=== PATIENT | male | born 1960 | race Caucasian/White ===

== ENCOUNTER 2016-11-27 09:54 | Emergency (ER) | payer SELFPAY ==
[~2016-11-27] VITALS: Ht 182.9 cm; Wt 102.0 kg
[~2016-11-27 09:54] MED LIST: ALBUTEROL INHALER
[2016-11-27 09:56] VITALS: BP 144/95; PULSE 70; RESP 20; TEMP 97.4; O2SAT 98
--- NOTE | 2016-11-27 10:06 | PD ---
Physical Exam Time Seen by Provider: 10:01 Narrative 56yo M c/o feeling lightheaded and chest "burning" last night and continued into this morning. BP 165/90 at time and associates it to feeling nervous. Does not take BP meds. Was evaluated one week ago in [place] for similar symptoms and [place], PE r/o. Reports SOB that is normal for him and is worse. Says he "just doesn't feel normal." Patient seen in triage. VS reviewed. Awaiting bed placement. Data Data Last Documented VS Vital Signs Date Time Temp Pulse Resp B/P Pulse Ox O2 Delivery O2 Flow Rate FiO2 11/27/16 09:56 97.4 70 20 144/95 98 Room Air [facility] Supervised Visit with TERESA: Joy Damon Nov 27, 2016 10:06
[2016-11-27] MEDS ORDERED: ASPI81CH37 CHEW (10:14)
[2016-11-27] MEDS ORDERED: VENTAER INH (10:14)
[2016-11-27] MEDS ORDERED: SODIUM CHLORIDE 0.9% FLUSH 10 ML FLUSH IVF PRN (10:15)
[2016-11-27 10:19] VITALS: BP 131/81; PULSE 64; RESP 23; O2SAT 96
[2016-11-27 10:36] LABS: AUTOMATED NEUTROPHIL # 4.7 TH/MM3 (1.8-7.7); BASOPHIL # 0.1 TH/MM3 (0-0.2); BASOPHIL % 1.9 % (0.0-2.0); EOSINOPHIL # 0.1 TH/MM3 (0-0.4); EOSINOPHIL % 1.7 % (0.0-4.0); HEMATOCRIT 46.4 % (39.0-51.0); HEMO FLAGS DIFF FINAL; LYMPH % 22.2 % (9.0-44.0); LYMPHOCYTE # 1.5 TH/MM3 (1.0-4.8); MEAN CELL VOLUME 91.6 FL (80.0-100.0); MEAN CORPUSCULAR HGB CONC 33.9 % (32.0-36.0); MONO % 6.7 % (0.0-8.0); NEUT % 67.5 % (16.0-70.0); PLATELET COUNT 189 TH/MM3 (150-450); RED BLOOD COUNT 5.07 MIL/MM3 (4.50-5.90); RED CELL DISTRIBUTION WIDTH 13.1 % (11.6-17.2); WHITE BLOOD COUNT 6.9 TH/MM3 (4.0-11.0)
[2016-11-27 10:45] LABS: APTT (PATIENT) 26.4 SEC (24.3-30.1); INTERNATIONAL NORMALIZED RATIO 0.9 RATIO; PROTHROMBIN TIME - PATIENT 10.2 SEC (9.8-11.6)
[2016-11-27 10:54] LABS: ANION GAP 6 MEQ/L (5-15); AST (GOT) 20 U/L (15-37); BICARBONATE 24.6 MEQ/L (21.0-32.0); BLOOD UREA NITROGEN 14 MG/DL (7-18); CHLORIDE 111 MEQ/L (98-107); GLOMERULAR FILTRATION RATE 60 ML/MIN (>89); MAGNESIUM 2.3 MG/DL (1.5-2.5); SODIUM (NA) 142 MEQ/L (136-145)
[2016-11-27 10:59] LABS: ALKALINE PHOSPHATASE 82 U/L (45-117); ALT (GPT) 32 U/L (12-78); CREATINE KINASE 74 U/L (39-308); TOTAL BILIRUBIN ADULT 0.6 MG/DL (0.2-1.0)
--- NOTE | 2016-11-27 11:11 | PD ---
HPI Chief Complaint: Chest Pain Time Seen by Provider: 11:11 Travel History International Travel<30 days: No Contact w/Intl Traveler<30days: No Traveled to known affect area: No History of Present Illness HPI 56-year-old male presents to emergency department for evaluation of a burning sensation in the left side of his chest. Patient states this has intermittently been happening over the last 2 weeks. Patient states on November 17 he was [place] He was admitted as observation and had a full chest pain workup. He had a stress test that was negative. Patient reports he was assured that this was not his heart, the patient states it causes him concern because he has had [address] from heart attacks. Patient does have anxiety. He has also had asthma. He states the only alleviating factor was last night he did take 2 puffs of his albuterol inhaler and the burning subsided. He states he was able to sleep and was not awoken by the burning sensation. Patient does report an increase in shortness of breath intermittently. Denies any chest tightness. No significant pain. He can point to where the burning is on the left side of the chest and it does not radiate anywhere. He has had a dry cough recently. No fever or chills. He has no other symptoms to report. PFSH Past Medical History Asthma: Yes Cardiovascular Problems: No High Cholesterol: No Diabetes: No Diminished Hearing: No Respiratory: Yes (SEASONAL BRONCHITIS) Immunizations Current: Yes Influenza Vaccination: No Past Surgical History Genitourinary Surgery: Yes ( A CHILD KIDNEY PROBLEMS) Tonsillectomy: Yes Family History Family Myocardial Infarction: Yes Social History Alcohol Use: Yes (rarely) Tobacco Use: No Substance Use: No Allergies-Medications (Allergen,Severity, Reaction): Coded Allergies: No Known Allergies (Verified , 11/27/16) Reported Meds & Prescriptions Reported Meds & Active Scripts Active Proair Hfa 8.5 GM Inh (Albuterol Sulfate) 90 Mcg/Act Aer 2 Puff INH Q4HR PRN 108 mcg/actuation Duoneb (Ipratropium-Albuterol Neb) 0.5-2.5 Mg/3 Ml Neb 1 Nebule INH Q4HR NEB PRN Reported Aspirin Low Dose (Aspirin) 81 Mg Chew 81 Mg CHEW DAILY Ventolin Hfa 18 GM Inh (Albuterol Sulfate) 90 Mcg/Act Aer 2 Puff INH Q6H PRN Review of Systems Except as stated in HPI: all other systems reviewed are Neg Physical Exam Narrative GENERAL: Well-nourished male patient, ambulatory and in no acute distress SKIN: Focused skin assessment warm/dry. HEAD: Atraumatic. Normocephalic. EYES: Pupils equal and round. No scleral icterus. No injection or drainage. ENT: No nasal bleeding or discharge. Mucous membranes pink and moist. NECK: Trachea midline. No JVD. CARDIOVASCULAR: Regular rate and rhythm. No murmur appreciated. RESPIRATORY: No accessory muscle use. Clear to auscultation. Breath sounds equal bilaterally. GASTROINTESTINAL: Abdomen soft, non-tender, nondistended. Hepatic and splenic margins not palpable. MUSCULOSKELETAL: No obvious deformities. No clubbing. No cyanosis. No edema. NEUROLOGICAL: Awake and alert. No obvious cranial nerve deficits. Motor grossly within normal limits. Normal speech. PSYCHIATRIC: Appropriate mood and affect; insight and judgment normal. Data Data Last Documented VS Vital Signs Date Time Temp Pulse Resp B/P Pulse Ox O2 Delivery O2 Flow Rate FiO2 11/27/16 10:19 64 23 131/81 96 Room Air 11/27/16 09:56 97.4 Orders Electrocardiogram (11/27/16 10:09) Ckmb (Isoenzyme) Profile (11/27/16 10:09) Complete Blood Count With Diff (11/27/16 10:09) Comprehensive Metabolic Panel (11/27/16 10:09) Magnesium (Mg) (11/27/16 10:09) Prothrombin Time / Inr (Pt) (11/27/16 10:09) Act Partial Throm Time (Ptt) (11/27/16 10:09) Troponin I (11/27/16 10:09) Ecg Monitoring (11/27/16 10:09) Iv Access Insert/Monitor (11/27/16 10:09) Oximetry (11/27/16 10:09) Oxygen Administration (11/27/16 10:09) Sodium Chloride 0.9% Flush (Ns Flush) (11/27/16 10:15) Al-Mag Hy-Si 40-40-4 Mg/Ml Liq (Mag-Al P (11/27/16 11:30) Lidocaine 2% Viscous (Xylocaine 2% Visco (11/27/16 11:30) Albuterol-Ipratropium Neb (Duoneb Neb) (11/27/16 12:15) Labs Laboratory Tests Test 11/27/16 10:24 White Blood Count 6.9 TH/MM3 Red Blood Count 5.07 MIL/MM3 Hemoglobin 15.7 GM/DL Hematocrit 46.4 % Mean Corpuscular Volume 91.6 FL Mean Corpuscular Hemoglobin 31.0 PG Mean Corpuscular Hemoglobin 33.9 % Concent Red Cell Distribution Width 13.1 % Platelet Count 189 TH/MM3 Mean Platelet Volume 9.4 FL Neutrophils (%) (Auto) 67.5 % Lymphocytes (%) (Auto) 22.2 % Monocytes (%) (Auto) 6.7 % Eosinophils (%) (Auto) 1.7 % Basophils (%) (Auto) 1.9 % Neutrophils # (Auto) 4.7 TH/MM3 Lymphocytes # (Auto) 1.5 TH/MM3 Monocytes # (Auto) 0.5 TH/MM3 Eosinophils # (Auto) 0.1 TH/MM3 Basophils # (Auto) 0.1 TH/MM3 CBC Comment DIFF FINAL Differential Comment Prothrombin Time 10.2 SEC Prothromb Time International 0.9 RATIO Ratio Activated Partial 26.4 SEC Thromboplast Time Sodium Level 142 MEQ/L Potassium Level 4.0 MEQ/L Chloride Level 111 MEQ/L Carbon Dioxide Level 24.6 MEQ/L Anion Gap 6 MEQ/L Blood Urea Nitrogen 14 MG/DL Creatinine 1.25 MG/DL Estimat Glomerular Filtration 60 ML/MIN Rate Random Glucose 99 MG/DL Calcium Level 8.7 MG/DL Magnesium Level 2.3 MG/DL Total Bilirubin 0.6 MG/DL Aspartate Amino Transf 20 U/L (AST/SGOT) Alanine Aminotransferase 32 U/L (ALT/SGPT) Alkaline Phosphatase 82 U/L Total Creatine Kinase 74 U/L Troponin I LESS THAN 0.02 NG/ML Total Protein 6.7 GM/DL Albumin 3.7 GM/DL [facility] Medical Decision Making Medical Screen Exam Complete: Yes Emergency Medical Condition: Yes Medical Record Reviewed: Yes Differential Diagnosis Anxiety versus bronchospasm versus asthma exacerbation versus pleuritic pain versus costochondritis versus less likely ACS Narrative Course 56-year-old male presents to emergency department for evaluation. Patient appears well and without distress. Lung sounds are clear. CBC and CMP are without acute concern. Troponin is less than 0.02. EKG is normal sinus rhythm , reviewed my attending physician. Patient was given GI cocktail with no relief of his symptoms. He has been given a DuoNeb treatment and verbalizes that the burning has subsided. I offered reassurance that with a negative cardiac workup 10 days ago and resolution of symptoms after a DuoNeb treatment, this is likely pleuritic in nature. I discussed the patient with my attending physician. His vital signs are stable. He is without distress or pain prior to discharge. Patient will be discharged home to follow-up with a milieu counselor and his primary care provider. He agrees to return immediately with any acute worsening of symptoms. Diagnosis Primary Impression: Bronchospasm Additional Impression: Pleuritic pain Referrals: Primary Care Physician Levi Maker Patient Instructions: Bronchospasm (ED), General Instructions Additional Instructions: Seek pulmonology evaluation Follow up with your primary care provider Return to ED with acute worsening of symptoms Med/Other Pt SpecificInfo: Prescription(s) given Scripts Albuterol 8.5 GM Inh (Proair Hfa 8.5 GM Inh)90 Mcg/Act Aer2 Puff INH Q4HR PRN ( SHORTNESS OF BREATH) #1 INHALER Ref 0 108 mcg/actuation Prov:Huong Mcgregor 11/27/16 Ipratropium-Albuterol Neb (Duoneb)0.5-2.5 Mg/3 Ml Neb1 Nebule INH Q4HR NEB PRN ( SOB/WHEEZING) #180 NEBULE Ref 0 Prov:Huong Mcgregor 11/27/16 Disposition: 01 DISCHARGE HOME Condition: Stable Huong Mcgregor Nov 27, 2016 11:11
[2016-11-27] MEDS ORDERED: LIDOCAINE VISCOUS 2% SOLN 15 ML UDC PO ONE (11:30)
[2016-11-27] MEDS ORDERED: ALUMINUM/MAGNESIUM/SIMETH 30 ML CUP PO ONE (11:30)
[2016-11-27] MEDS ORDERED: RESP: ALBUTEROL 2.5 MG/IPRATROPIUM 0.5 MG NEB (SCH) NEB ONE (12:15)
[2016-11-27] MEDS ORDERED: ALBUAER3 INH (12:36)
[2016-11-27] MEDS ORDERED: IPRASOL INH (12:36)
--- NOTE | 2016-11-28 22:59 | EKG ---
Date Performed: 11/27/2016 Time Performed: 10:16:38 PTAGE: 56 years EKG: Sinus rhythm LOW QRS VOLTAGE IN PRECORDIAL LEADS POSSIBLE RIGHT VENTRICULAR CONDUCTION DELAY BORDERLINE ECG PREVIOUS TRACING : 06/13/2013 22.25 DOCTOR: Ryan Maya Interpretating Date/Time 11/28/2016 22:58:29
== END 2016-11-27 12:53 | disposition home or self-care (01) ==
LOC: NEPC 09:54
DX: J98.01 Acute bronchospasm (principal); R07.81 Pleurodynia; R06.02 Shortness of breath; R20.8 Other disturbances of skin sensation; R42 Dizziness and giddiness
CPT/HCPCS: 80053; 82550; 83735; 84484; 85025; 85610; 85730; 93005; 94664; 99284

== ENCOUNTER 2016-11-28 11:56 | Observation (INO) | payer SELFPAY ==
[~2016-11-28] VITALS: Ht 182.9 cm; Wt 100.0 kg
[~2016-11-28 11:56] MED LIST changes: +ALBUAER3 INH; -ALBUTEROL INHALER; +ASPI81CH37 CHEW; +IPRASOL INH; +VENTAER INH
[2016-11-28 12:00] VITALS: BP 181/91; PULSE 87; RESP 16; TEMP 97.6; O2SAT 98
[2016-11-28] MEDS ORDERED: SODIUM CHLORIDE 0.9% FLUSH 10 ML FLUSH IVF PRN (12:45)
[2016-11-28 13:01] LABS: AUTOMATED NEUTROPHIL # 4.7 TH/MM3 (1.8-7.7); BASOPHIL # 0.1 TH/MM3 (0-0.2); EOSINOPHIL # 0.1 TH/MM3 (0-0.4); EOSINOPHIL % 1.6 % (0.0-4.0); HEMATOCRIT 46.9 % (39.0-51.0); HEMO FLAGS DIFF FINAL; LYMPH % 25.7 % (9.0-44.0); LYMPHOCYTE # 1.8 TH/MM3 (1.0-4.8); MEAN CELL VOLUME 92.3 FL (80.0-100.0); MEAN CORPUSCULAR HEMOGLOBIN 30.7 PG (27.0-34.0); MEAN CORPUSCULAR HGB CONC 33.3 % (32.0-36.0); MONO % 6.4 % (0.0-8.0); NEUT % 65.3 % (16.0-70.0); PLATELET COUNT 186 TH/MM3 (150-450); RED BLOOD COUNT 5.08 MIL/MM3 (4.50-5.90); RED CELL DISTRIBUTION WIDTH 13.2 % (11.6-17.2); WHITE BLOOD COUNT 7.2 TH/MM3 (4.0-11.0)
[2016-11-28 13:09] LABS: APTT (PATIENT) 25.6 SEC (24.3-30.1); INTERNATIONAL NORMALIZED RATIO 0.9 RATIO; PROTHROMBIN TIME - PATIENT 10.4 SEC (9.8-11.6)
--- NOTE | 2016-11-28 13:09 | RADRPT ---
EXAM DATE/TIME: 11/28/2016 12:55 [facility] COMPARISON: CHEST SINGLE AP, June 13, 2013, 15:45. INDICATIONS : Chest pain. MEDICAL HISTORY : None. SURGICAL HISTORY : None. ENCOUNTER: Initial ACUITY: 3 weeks PAIN SCORE: 5/10 LOCATION: chest midline. FINDINGS: The lungs are clear. The heart is minimally enlarged. The pulmonary vascularity is normal. There is n o evidence for infiltrate or failure. The portion of the bony skeleton visualized is unremarkable. CONCLUSION: Compensated cardiomegaly otherwise negative Miguel Armando MD FACR on November 28, 2016 at 13:06 Board Certified Radiologist. This report was verified electronically.
[2016-11-28 13:37] LABS: ANION GAP 7 MEQ/L (5-15); BICARBONATE 24.5 MEQ/L (21.0-32.0); BLOOD UREA NITROGEN 15 MG/DL (7-18); CHLORIDE 110 MEQ/L (98-107); GLOMERULAR FILTRATION RATE 54 ML/MIN (>89); MAGNESIUM 2.3 MG/DL (1.5-2.5); POTASSIUM 4.2 MEQ/L (3.5-5.1); SODIUM (NA) 141 MEQ/L (136-145)
[2016-11-28 13:49] LABS: CREATINE KINASE 67 U/L (39-308)
[2016-11-28] MEDS ORDERED: SODIUM CHLOR 0.9% 1000 ML INJ 1,000 ML IV ONE (14:15)
[2016-11-28 14:48] VITALS: BP 158/86; PULSE 80; RESP 16; O2SAT 94
--- NOTE | 2016-11-28 14:55 | PD ---
HPI Chief Complaint: Cardiac Complaint Time Seen by Provider: 12:11 Travel History International Travel<30 days: No Contact w/Intl Traveler<30days: No Traveled to known affect area: No History of Present Illness HPI Our patient is a 56 year old white male presenting with non-radiating left sided chest discomfort of 3 week duration. He describes the discomfort as a burning sensation that was "hard to describe" and distinct from pain. He initially felt this discomfort diffusely across his chest but over the past 2 days it has localized to his left chest. Last night, he took 81 mg ASA without improvement in symptoms. He thinks this pain may be exacerbated by stress caused by his relationship with his son. He reports having associated dry cough , nausea, clammy skin, and lightheadedness. At times he feels as though he is going to pass out. He denies shortness of breath, fever, abdominal pain, edema, vomiting or change in bowel or urine function. He denies seeing visible blood in his urine or stool. The patient reports experiencing similar symptoms on November 13- when he was on vacation in [place], and again on November 17 when he was visiting [place], [place] where he went to the hospital and had a cardiac workup. He reports being discharged without significant findings. He then presented to the ED yesterday with the same symptoms, underwent another cardiac workup and was discharged. His discomfort persisted so he came to the ED once again today for evaluation. He is a [employer]. [facility] Past Medical History Narrative Medical PMHx, FMHx, social history, and surgical history reviewed from the nurse's note. Medical History: Denies Significant Hx Asthma: Yes Cardiovascular Problems: No High Cholesterol: No Diabetes: No Diminished Hearing: No Respiratory: Yes (SEASONAL BRONCHITIS) Immunizations Current: Yes Past Surgical History Genitourinary Surgery: Yes ( A CHILD KIDNEY PROBLEMS) Tonsillectomy: Yes Family History Family Myocardial Infarction: Yes Social History Alcohol Use: Yes (rarely) Tobacco Use: No Substance Use: No Allergies-Medications (Allergen,Severity, Reaction): Coded Allergies: No Known Allergies (Verified , 11/27/16) Comments No known drug allergies. Reported Meds & Prescriptions Reported Meds & Active Scripts Active Duoneb (Ipratropium-Albuterol Neb) 0.5-2.5 Mg/3 Ml Neb 1 Nebule INH Q4HR NEB PRN Reported Ventolin Hfa 18 GM Inh (Albuterol Sulfate) 90 Mcg/Act Aer 2 Puff INH Q6H PRN Narrative Medication List of his medications reviewed from the nursing note. Review of Systems Except as stated in HPI: all other systems reviewed are Neg Physical Exam Narrative GENERAL: Alert and oriented x3, in no acute distress. SKIN: Focused skin assessment warm/dry. HEAD: Atraumatic. Normocephalic. EYES: Pupils equal and round. No scleral icterus. No injection or drainage. ENT: No nasal bleeding or discharge. Mucous membranes pink and moist. NECK: Trachea midline. No JVD. CARDIOVASCULAR: Regular rate and rhythm. No murmur appreciated. RESPIRATORY: No accessory muscle use. Clear to auscultation. Breath sounds equal bilaterally. GASTROINTESTINAL: Abdomen soft, non-tender, nondistended. Hepatic and splenic margins not palpable. MUSCULOSKELETAL: No obvious deformities. No clubbing. No cyanosis. No edema. NEUROLOGICAL: Awake and alert. No obvious cranial nerve deficits. Motor grossly within normal limits. Normal speech. PSYCHIATRIC: Appropriate mood and affect; insight and judgment normal. Data Data Last Documented VS Vital Signs Date Time Temp Pulse Resp B/P Pulse Ox O2 Delivery O2 Flow Rate FiO2 11/28/16 14:48 80 16 158/86 94 11/28/16 12:42 Room Air 11/28/16 12:00 97.6 Orders Electrocardiogram (11/28/16 12:38) Basic Metabolic Panel (Bmp) (11/28/16 12:38) Ckmb (Isoenzyme) Profile (11/28/16 12:38) Complete Blood Count With Diff (11/28/16 12:38) Magnesium (Mg) (11/28/16 12:38) Prothrombin Time / Inr (Pt) (11/28/16 12:38) Act Partial Throm Time (Ptt) (11/28/16 12:38) Troponin I (11/28/16 12:38) Chest, Single Ap (11/28/16 12:38) Ecg Monitoring (11/28/16 12:38) Bilateral Bp Monitoring (11/28/16 12:38) Iv Access Insert/Monitor (11/28/16 12:38) Oximetry (11/28/16 12:38) Oxygen Administration (11/28/16 12:38) Sodium Chloride 0.9% Flush (Ns Flush) (11/28/16 12:45) Ct Pulmonary Angiogram (11/28/16 12:38) Sodium Chlor 0.9% 1000 Ml Inj (Ns 1000 M (11/28/16 14:15) Iohexol 350 Inj (Omnipaque 350 Inj) (11/28/16 15:33) Admit Order (Ed Use Only) (11/28/16 16:33) Labs Laboratory Tests Test 11/28/16 12:45 White Blood Count 7.2 TH/MM3 Red Blood Count 5.08 MIL/MM3 Hemoglobin 15.6 GM/DL Hematocrit 46.9 % Mean Corpuscular Volume 92.3 FL Mean Corpuscular Hemoglobin 30.7 PG Mean Corpuscular Hemoglobin 33.3 % Concent Red Cell Distribution Width 13.2 % Platelet Count 186 TH/MM3 Mean Platelet Volume 9.3 FL Neutrophils (%) (Auto) 65.3 % Lymphocytes (%) (Auto) 25.7 % Monocytes (%) (Auto) 6.4 % Eosinophils (%) (Auto) 1.6 % Basophils (%) (Auto) 1.0 % Neutrophils # (Auto) 4.7 TH/MM3 Lymphocytes # (Auto) 1.8 TH/MM3 Monocytes # (Auto) 0.5 TH/MM3 Eosinophils # (Auto) 0.1 TH/MM3 Basophils # (Auto) 0.1 TH/MM3 CBC Comment DIFF FINAL Differential Comment Prothrombin Time 10.4 SEC Prothromb Time International 0.9 RATIO Ratio Activated Partial 25.6 SEC Thromboplast Time Sodium Level 141 MEQ/L Potassium Level 4.2 MEQ/L Chloride Level 110 MEQ/L Carbon Dioxide Level 24.5 MEQ/L Anion Gap 7 MEQ/L Blood Urea Nitrogen 15 MG/DL Creatinine 1.37 MG/DL Estimat Glomerular Filtration 54 ML/MIN Rate Random Glucose 94 MG/DL Calcium Level 8.9 MG/DL Magnesium Level 2.3 MG/DL Total Creatine Kinase 67 U/L Troponin I LESS THAN 0.02 NG/ML MDM Medical Decision Making Medical Screen Exam Complete: Yes Emergency Medical Condition: Yes Medical Record Reviewed: Yes Interpretation(s) Twelve-lead EKG was reviewed by me. Normal sinus rhythm, left axis deviation, nonspecific ST-T wave changes. Heart rate of 81 bpm Differential Diagnosis Chest pain NOS, GERD, costochondritis, bronchospasm, asthma exacerbation, neuralgia, anxiety Narrative Course Patient agreed to receiving a CT of his chest to further evaluate his symptoms. 4:37 PM blood test and CT are within normal limit. I'll admit him to the chest pain center. Procedures EKG Prior to Arrival: No Diagnosis Primary Impression: Chest pain Qualified Code: R07.9 - Chest pain, unspecified type Admitting Information Admitting Physician Requests: Observation Scripts Losartan 50 Mg Tab50 Mg PO DAILY #30 TAB Ref 1 Prov:Michelle Balderrama 11/29/16 Ray Nair MD Nov 28, 2016 14:54
[2016-11-28] MEDS ORDERED: IOHEXOL 350 MG/ML 10 ML VIAL (for RAD DIAG) IV ONE (15:33)
--- NOTE | 2016-11-28 16:04 | RADRPT ---
EXAM DATE/TIME: 11/28/2016 15:25 [facility] COMPARISON: CT BRAIN W/O CONTRAST, June 25, 2015, 7:13. INDICATIONS : Patient cmplains of burning in chest. IV CONTRAST: 72 cc Omnipaque 350 (iohexol) IV RADIATION DOSE: 35.99 CTDIvol (mGy) MEDICAL HISTORY : None SURGICAL HISTORY : None. ENCOUNTER: Initial ACUITY: 1 day PAIN SCALE: 8/10 LOCATION: chest TECHNIQUE: Volumetric scanning of the chest was performed using a pulmonary embolism protocol MIP images were re constructed. Using automated exposure control and adjustment of the mA and/or kV according to patien t size, radiation dose was kept as low as reasonably achievable to obtain optimal diagnostic quality images. FINDINGS: PULMONARY ARTERIES: No filling defects are seen in the pulmonary arteries through the segmental level. LUNGS: There is no consolidation or pneumothorax . No concerning pulmonary nodule is visualized. PLEURAE: There is no pleural thickening or pleural effusion. MEDIASTINUM: There is good visualization of the great vessels of the middle mediastinum. No evidence of mediastin al or hilar adenopathy/mass. MUSCULOSKELETAL: Within normal limits for patient age. MISCELLANEOUS: The visualized upper abdominal organs demonstrate no acute abnormality. CONCLUSION: 1. No pulmonary embolus identified. The lungs are clear. Reddy Armando MD on November 28, 2016 at 15:59 Board Certified Radiologist. This report was verified electronically.
[2016-11-28] MEDS ORDERED: NITROGLYCERIN 0.4 MG SL 25 TABS/BTL SL PRN (17:30)
[2016-11-28] MEDS ORDERED: ONDANSETRON HCL 4 MG/2 ML VIAL IV PRN (17:30)
[2016-11-28] MEDS ORDERED: ACETAMINOPHEN 500 MG CPLT PO PRN (17:30)
[2016-11-28 20:25] VITALS: BP 139/90; PULSE 72; RESP 18; TEMP 98.2; O2SAT 98
[2016-11-28] MEDS: SODIUM CHLORIDE 0.9% FLUSH 10 ML FLUSH IV FLUSH SCH (21:00)
[2016-11-28 21:45] VITALS: PULSE 87
[2016-11-28 22:17] LABS: CREATINE KINASE 62 U/L (39-308)
[2016-11-28 22:51] VITALS: BP 124/88; PULSE 72; RESP 20; TEMP 98.2; O2SAT 94
[2016-11-28 23:51] VITALS: PULSE 65
[2016-11-29 00:31] LABS: CREATINE KINASE 67 U/L (39-308)
[2016-11-29 03:47] VITALS: BP 121/75; PULSE 68; RESP 18; TEMP 98.4; O2SAT 95
[2016-11-29 08:37] VITALS: BP 146/83; PULSE 70; RESP 18; TEMP 97; O2SAT 97
[2016-11-29] MEDS ORDERED: ASPIRIN 325 MG TAB PO SCH (09:00)
[2016-11-29] MEDS: SODIUM CHLORIDE 0.9% FLUSH 10 ML FLUSH IV FLUSH SCH (09:54)
--- NOTE | 2016-11-29 11:14 | EKG ---
Date Performed: 11/28/2016 Time Performed: 17:26:49 PTAGE: 56 years EKG: Sinus rhythm LOW QRS VOLTAGE IN PRECORDIAL LEADS POSSIBLE RIGHT VENTRICULAR CONDUCTION DELAY BORDERLINE ECG PREVIOUS TRACING : 11/28/2016 12.13 DOCTOR: Marin Sheth Interpretating Date/Time 11/29/2016 11:12:25
--- NOTE | 2016-11-29 11:20 | EKG ---
Date Performed: 11/28/2016 Time Performed: 22:49:20 PTAGE: 56 years EKG: Sinus rhythm LOW QRS VOLTAGE IN PRECORDIAL LEADS POSSIBLE RIGHT VENTRICULAR CONDUCTION DELAY BORDERLINE ECG PREVIOUS TRACING : 11/28/2016 20.21 DOCTOR: Marin Sheth Interpretating Date/Time 11/29/2016 11:19:30
[2016-11-29 11:24] VITALS: PULSE 74
--- NOTE | 2016-11-29 12:02 | HHI.HP ---
HPI Primary Care Physician Scott Saenz MD Chief Complaint Chest pain History of Present Illness 56-year-old male with no pertinent medical history presents to the emergency room for further evaluation left sided chest discomfort. Reports intermittent substernal pressure with a flushing feeling that radiates through his neck had stopped years. He was seen and evaluated for the same feeling on November 17 while on vacation. Evaluated [facility] endorses an exercise treadmill was completed and and was told test was completely normal. He arrived from vacation on 11/20 and since that time he continues to have intermittent symptoms as stated above. Reports new symptom of left anterior chest burning 5 days. He was seen and evaluated 11/27 [facility] was given a nebulizer with relief and given a GI cocktail without relief. 11/28 symptoms reoccurred which prompted him to come to the emergency room for further evaluation. He recently lost 2 close friends within the past month unexpected heart attacks. Endorses situational stress regarding his son and their business. He questions whether his feelings could be related to anxiety. Review of Systems General: No fatigue,weakness, fever, chills, or recent illness. Has been in his generalize state of health. HEENT: No BERMUDEZ, no nasal congestion or drainage, no dysphasia CV: As stated above. Denies any current CP, pressure, or burning. RESP: No SOB, cough, wheeze, recent URI. Endorses history of asthma but has never been "officially diagnoses with asthma." Reporting "weak lungs since he was a child." GI: No nausea, vomiting, bowel changes, diarrhea, or constipation. No change in appetite, no unintentional weight gain or weight loss. : No dysuria, urgency, frequency EXT: No lower leg edema, no paraesthesias MS: No discomfort or change in ROM NEURO: No difficulty with balance, LOC, motor/sensory deficits PSYCH: Situation stress with recent 2 friends passing away and fighting with his son. SKIN: No rashes, no concerning lesions Past Family Social History Allergies: Coded Allergies: No Known Allergies (Verified , 11/27/16) Past Medical History Asthma, migraines Past Surgical History tonsillectomy Reported Medications Active Proair Hfa 8.5 GM Inh (Albuterol Sulfate) 90 Mcg/Act Aer 2 Puff INH Q4HR PRN 108 mcg/actuation Duoneb (Ipratropium-Albuterol Neb) 0.5-2.5 Mg/3 Ml Neb 1 Nebule INH Q4HR NEB LA Aspirin Low Dose (Aspirin) 81 Mg Chew 81 Mg CHEW DAILY Ventolin Hfa 18 GM Inh (Albuterol Sulfate) 90 Mcg/Act Aer 2 Puff INH Q6H PRN Active Ordered Medications Current Medications Medications (Trade) Dose Ordered Sig/Arron Route Start Time Stop Time Status Last Admin (Tylenol) 500 mg Q4H PRN PO 11/28/16 17:30 (Zofran Inj) 4 mg Q6H PRN IV 11/28/16 17:30 (Nitrostat Sl) 0.4 mg Q5M PRN SL 11/28/16 17:30 (Aspirin) 325 mg DAILY PO 11/29/16 09:00 11/29/16 09:53 Family History Noncontributory for early onset cardiovascular disease Social History No known diabetes, hypertension, hyperlipidemia. Lifelong nonsmoker. Denies any alcohol or illegal drug use. He is a Jehovah witness. . 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 Endorses an active lifestyle. Past cardiac testing Recent exercise stress test on November 17, 2016. Was told test was unremarkable and he walked over 10 minutes. Test completed in [place], [place] Physical Exam Vital Signs Vital Signs Date Time Temp Pulse Resp B/P Pulse Ox O2 Delivery O2 Flow Rate FiO2 11/29/16 11:24 74 11/29/16 08:37 97.0 70 18 146/83 97 11/29/16 03:47 98.4 68 18 121/75 95 11/28/16 23:51 65 11/28/16 22:51 98.2 72 20 124/88 94 11/28/16 21:45 87 11/28/16 20:25 98.2 72 18 139/90 98 11/28/16 14:48 80 16 158/86 94 11/28/16 12:42 Room Air 11/28/16 12:42 Room Air Physical Exam GENERAL: Alert WN, WD, NAD, pleasant, male HEAD: NC, AT EYES: Sclera clear, conjunctiva without injection, pupils equal and round ENT: Mucous membranes pink and moist NECK: Supple, no masses, trachea midline CV: RRR, 2/6 systolic murmur, no rub, gallop, no JVD, S1-S2 no S3-S4. RESP: Clear lungs throughout bilateral, no crackles, wheeze, rhonchi, symmetrical chest rise, nonlabored, able to speak in full sentences ABD: Soft, NT, ND, no masses, positive bowel tones BACK: No CVAT, no scoliosis EXT: Pulses +24, no dependent edema MS: Normal tone 4 extremities, nontender, no obvious deformities, full range of motion NEURO: CN II through CN XII grossly intact, motor strength 5/5, gait WNL PSYCH: A+O 3, pleasant affect, appropriate speech, appropriate mood and affect , insight and judgment SKIN: Normal turgor, normal texture, no lesions, no rashes, even hair distribution Laboratory Laboratory Tests Test 11/28/16 11/28/16 11/28/16 12:45 20:40 23:30 White Blood Count 7.2 Red Blood Count 5.08 Hemoglobin 15.6 Hematocrit 46.9 Mean Corpuscular Volume 92.3 Mean Corpuscular Hemoglobin 30.7 Mean Corpuscular Hemoglobin 33.3 Concent Red Cell Distribution Width 13.2 Platelet Count 186 Mean Platelet Volume 9.3 Neutrophils (%) (Auto) 65.3 Lymphocytes (%) (Auto) 25.7 Monocytes (%) (Auto) 6.4 Eosinophils (%) (Auto) 1.6 Basophils (%) (Auto) 1.0 Neutrophils # (Auto) 4.7 Lymphocytes # (Auto) 1.8 Monocytes # (Auto) 0.5 Eosinophils # (Auto) 0.1 Basophils # (Auto) 0.1 CBC Comment DIFF FINAL Differential Comment Prothrombin Time 10.4 Prothromb Time International 0.9 Ratio Activated Partial 25.6 Thromboplast Time Sodium Level 141 Potassium Level 4.2 Chloride Level 110 Carbon Dioxide Level 24.5 Anion Gap 7 Blood Urea Nitrogen 15 Creatinine 1.37 Estimat Glomerular Filtration 54 Rate Random Glucose 94 Calcium Level 8.9 Magnesium Level 2.3 Total Creatine Kinase 67 62 67 Troponin I LESS THAN 0.02 LESS THAN 0.02 LESS THAN 0.02 Result Diagram: 11/28/16 1245 11/28/16 1245 Imaging Last Impressions Chest X-Ray 11/28/16 1238 Signed Impressions: Service Date/Time: Monday, November 28, 2016 12:55 - CONCLUSION: Compensated cardiomegaly otherwise negative Miguel Armando MD FACR CT Angiography 11/28/16 1238 Signed Impressions: Service Date/Time: Monday, November 28, 2016 15:25 - CONCLUSION: 1. No pulmonary embolus identified. The lungs are clear. Reddy Armando MD Course EKGs Normal sinus rhythm, normal axis, no ST or T-segment changes Assessment and Plan Assessment and Plan #1 Chest painadmitted to chest pain center. Ruled out with 3 sets of cardiac enzymes, EKGs, and monitored overnight. Will be seen and evaluated by Dr. Marin Sheth. Discussed in length most likely no cardiac testing will be repeated due to recent normal exercise stress test. #2 Mild hypertension-encouraged low sodium diet, losartan 50mg daily prescription given as discharge. Follow in one month with PCP. #3 Situational stress-if stress continues discuss with primary care provider about possible prescription medications. Encouraged eating a well balanced diet , performing daily activity, ensuring adequate sleep, and finding methods to reduce current stress levels. Michelle Balderrama Nov 29, 2016 12:02 Michelle Balderrama Nov 29, 2016 12:02
[2016-11-29 12:35] VITALS: BP 140/80; PULSE 66; RESP 18; TEMP 97.2; O2SAT 96
[2016-11-29 12:53] LABS: BLOOD, URINE NEG (NEG); GLUCOSE,URINE NEG (NEG); KETONE, URINE NEG (NEG); NITRITE,URINE NEG (NEG); URINE COLOR YELLOW (YELLW/STRAW)
[2016-11-29 12:54] LABS: COMMENT (UR) CULT NOT INDICATED; CULTURE IF INDICATED CULT NOT INDICATED
--- NOTE | 2016-11-29 13:18 | EKG ---
Date Performed: 11/28/2016 Time Performed: 20:21:51 PTAGE: 56 years EKG: Sinus rhythm LOW QRS VOLTAGE IN PRECORDIAL LEADS POSSIBLE RIGHT VENTRICULAR CONDUCTION DELAY BORDERLINE ECG PREVIOUS TRACING : 11/28/2016 17.26 Compared to prior tracing no significant change DOCTOR: Kameron Montaño Interpretating Date/Time 11/29/2016 13:17:30
--- NOTE | 2016-11-29 13:36 | EKG ---
Date Performed: 11/28/2016 Time Performed: 12:13:19 PTAGE: 56 years EKG: Sinus rhythm LOW QRS VOLTAGE IN PRECORDIAL LEADS POSSIBLE RIGHT VENTRICULAR CONDUCTION DELAY BORDERLINE ECG PREVIOUS TRACING : 11/27/2016 10.16 Compared to prior tracing no significant change DOCTOR: Kameron Montaño Interpretating Date/Time 11/29/2016 13:32:46
--- NOTE | 2016-11-29 15:55 | HHI.DCPOC ---
Discharge Care Plan Diagnosis: (1) Atypical chest pain (2) Hypertension (3) Situational stress Goals to Promote Your Health * To prevent worsening of your condition and complications * To maintain your health at the optimal level Directions to Meet Your Goals Take your medications as prescribed Follow your dietary instruction Follow activity as directed Keep your appointments as scheduled Take your immunizations and boosters as scheduled If your symptoms worsen call your PCP, if no PCP go to Urgent Care Center or Emergency Room Smoking is Dangerous to Your Health. Avoid second hand smoke Call the 24-hour hour crisis hotline for domestic abuse at Michelle Balderrama Nov 29, 2016 15:55
[2016-11-29] MEDS ORDERED: LOSA50TA PO (15:57)
== END 2016-11-29 16:34 | disposition home or self-care (01) ==
LOC: NEPC 11:56 → NEDA 16:37 → NEPGCP 18:40 → UNDODISOB 11-29 16:13
PROVIDERS: ADMIT Internal Medicine Cardiovascular Disease; ATTEND Internal Medicine Cardiovascular Disease
DX: R07.89 Other chest pain (principal); R05 Cough; R11.0 Nausea; R42 Dizziness and giddiness; I10 Essential (primary) hypertension; I51.7 Cardiomegaly; J45.909 Unspecified asthma, uncomplicated
CPT/HCPCS: 71010; 71275; 80048; 81001; 82550; 82565; 83735; 84484; 85025; 85610; 85730; 93005; 99285; G0378; J7030; Q9967

== ENCOUNTER 2017-03-08 22:49 | Emergency (ER) | payer SELFPAY ==
[~2017-03-08] VITALS: Ht 188 cm; Wt 100.0 kg
[~2017-03-08 22:49] MED LIST changes: -ALBUAER3 INH; -ASPI81CH37 CHEW; +LOSA50TA PO
[2017-03-08 22:51] VITALS: BP 148/91; PULSE 75; RESP 16; TEMP 98.4; O2SAT 97
[2017-03-08 23:09] VITALS: BP 154/91; PULSE 64; RESP 16; TEMP 98.1; O2SAT 97
--- NOTE | 2017-03-08 23:09 | PD ---
HPI Chief Complaint: midepigastric abdominal pain Time Seen by Provider: 23:05 Travel History International Travel<30 days: No Contact w/Intl Traveler<30days: No History of Present Illness HPI The patient is a 56 year old male who presents to the [facility] emergency department with a history of chest pain that began two nights ago and was different type of pain that is a burning/pain sensation. He has fatigue, lightheaded sensation, and dizziness. He has nausea. The pain is located in the midepigastric area and lower center of his chest. He has had a decreased appetite. It comes and goes. It is worse at night and seems to be worse with eating over the last 2 days. He has had recent problems with anxiety and panic attacks. He has recently been started Xanax. He is being followed by Dr. Saenz. Previously he had cp over his bilateral sides of the chest that is a burning sensation. He last took a Xanax last night. The patient denies any history of fever, neck pain, shortness of breath, diarrhea, urinary symptoms, or neurologic symptoms. cough, postnasal drip, difficult swallowing for the past week. His last BM was today. Related to the chest pain that he has been experiencing that is been coming and going he was admitted to the [facility] and had a treadmill stress test done that was reportedly negative. He was also admitted to this facility and the chest pain center and had a rule out serial cardiac enzyme protocol. Further stress testing was not done at that time. [facility] Past Medical History Narrative Medical The patient's past medical history is significant for anxiety, reactive airway- bronchitis, possible hypertension. Asthma: Yes Heart Rhythm Problems: No Cardiac Catheterization: No Cardiovascular Problems: Yes High Cholesterol: No Congestive Heart Failure: No Diabetes: No Diminished Hearing: No Respiratory: Yes (SEASONAL BRONCHITIS) Immunizations Current: Yes Past Surgical History Narrative Surgical The patient's past surgical history is significant for none. Coronary Artery Bypass Graft: No Genitourinary Surgery: Yes ( A CHILD KIDNEY PROBLEMS) Tonsillectomy: Yes Social History Alcohol Use: Yes (rarely) Tobacco Use: No Substance Use: No Allergies-Medications (Allergen,Severity, Reaction): Coded Allergies: No Known Allergies (Verified , 11/27/16) Reported Meds & Prescriptions Reported Meds & Active Scripts Active Famotidine 20 Mg Tab 20 Mg PO BID Losartan (Losartan Potassium) 50 Mg Tab 50 Mg PO DAILY Duoneb (Ipratropium-Albuterol Neb) 0.5-2.5 Mg/3 Ml Neb 1 Nebule INH Q4HR NEB PRN Reported Ventolin Hfa 18 GM Inh (Albuterol Sulfate) 90 Mcg/Act Aer 2 Puff INH Q6H PRN Narrative Medication homeopathic meds for hypertension, acid reflux Review of Systems Except as stated in HPI: all other systems reviewed are Neg General / Constitutional: No: Fever Eyes: No: Visual changes HENT: No: Headaches Cardiovascular: Positive: Chest Pain or Discomfort Respiratory: No: Shortness of Breath Gastrointestinal: Positive: Nausea, Abdominal Pain, Indigestion, No: Vomiting, Diarrhea, Loss of Appetite Genitourinary: No: Dysuria Musculoskeletal: No: Pain Skin: No Rash Neurologic: Positive: Weakness (generalized weakness), No: Focal Abnormalities , Change in Mentation, Slurred Speech, Sensory Disturbance Psychiatric: No: Depression Endocrine: No: Polydipsia Hematologic/Lymphatic: No: Easy Bruising Physical Exam Narrative General: The patient is well-developed well-nourished male in no acute distress. Head and Neck exam: Head is normocephalic atraumatic. Eyes: EOMI, pupils are equal round and reactive to light. Nose: Midline septum with pink mucous membranes Mouth: Dentition unremarkable. Moist mucus membranes. Posterior oropharynx is not erythematous. No tonsillar hypertrophy. Uvula midline. Airway patent. Neck: No palpable lymphadenopathy. No nuchal rigidity. No thyromegaly. Cardiovascular: Regular rate and rhythm without murmurs, gallops, or rubs. Lungs: Clear to auscultation bilaterally. No wheezes, rhonchi, or rales. Abdomen: Soft, with tenderness on palpation of the midepigastric area and right upper quadrant of the abdomen. No other tenderness on palpation of the other quadrants of the abdomen. Negative Kinney's sign. No tenderness on palpation of McBurney's point. Normal bowel sounds are audible. No guarding, rebound, or rigidity. Extremities: No clubbing, cyanosis, or edema. 2+ pulses in all 4 extremities. No calf tenderness on palpation. Back: No costovertebral angle tenderness to palpation. Neurologic Exam: Grossly nonfocal. Skin Exam: No rash noted. Intact skin that is warm and dry. Data Data Last Documented VS Vital Signs Date Time Temp Pulse Resp B/P (MAP) Pulse Ox O2 Delivery O2 Flow Rate FiO2 03/09/17 03:18 60 16 113/71 (85) 97 03/08/17 23:38 98.1 03/08/17 23:09 Room Air Orders Orders Electrocardiogram (03/08/17 23:07) B-Type Natriuretic Peptide (03/08/17 23:07) Ckmb (Isoenzyme) Profile (03/08/17 23:07) Complete Blood Count With Diff (03/08/17 23:07) Comprehensive Metabolic Panel (03/08/17 23:07) Magnesium (Mg) (03/08/17 23:07) Prothrombin Time / Inr (Pt) (03/08/17 23:07) Act Partial Throm Time (Ptt) (03/08/17 23:07) Troponin I (03/08/17 23:07) Lipase (03/08/17 23:07) Chest, Single Ap (03/08/17 23:07) Ecg Monitoring (03/08/17 23:07) Bilateral Bp Monitoring (03/08/17 23:07) Iv Access Insert/Monitor (03/08/17 23:07) Oximetry (03/08/17 23:07) Oxygen Administration (03/08/17 23:07) Aspirin Chew (Aspirin Chew) (03/08/17 23:15) Sodium Chloride 0.9% Flush (Ns Flush) (03/08/17 23:15) Nitroglycerin Sl (Nitrostat Sl) (03/08/17 23:15) Famotidine Inj (Pepcid Inj) (03/09/17 00:30) Us Abdomen Gallbladder (03/09/17 00:25) Troponin I (03/09/17 02:11) Labs Laboratory Tests Test 03/08/17 23:11 03/09/17 02:10 White Blood Count 8.8 TH/MM3 Red Blood Count 5.46 MIL/MM3 Hemoglobin 16.8 GM/DL Hematocrit 49.8 % Mean Corpuscular Volume 91.3 FL Mean Corpuscular Hemoglobin 30.7 PG Mean Corpuscular Hemoglobin Concent 33.6 % Red Cell Distribution Width 13.1 % Platelet Count 233 TH/MM3 Mean Platelet Volume 9.5 FL Neutrophils (%) (Auto) 55.6 % Lymphocytes (%) (Auto) 32.5 % Monocytes (%) (Auto) 8.4 % Eosinophils (%) (Auto) 2.2 % Basophils (%) (Auto) 1.3 % Neutrophils # (Auto) 4.9 TH/MM3 Lymphocytes # (Auto) 2.8 TH/MM3 Monocytes # (Auto) 0.7 TH/MM3 Eosinophils # (Auto) 0.2 TH/MM3 Basophils # (Auto) 0.1 TH/MM3 CBC Comment DIFF FINAL Differential Comment Prothrombin Time 10.5 SEC Prothromb Time International Ratio 1.0 RATIO Activated Partial Thromboplast Time 26.4 SEC Blood Urea Nitrogen 16 MG/DL Creatinine 1.37 MG/DL Random Glucose 90 MG/DL Total Protein 7.6 GM/DL Albumin 4.2 GM/DL Calcium Level 9.0 MG/DL Magnesium Level 2.5 MG/DL Alkaline Phosphatase 91 U/L Aspartate Amino Transf (AST/SGOT) 19 U/L Alanine Aminotransferase (ALT/SGPT) 35 U/L Total Bilirubin 0.6 MG/DL Sodium Level 140 MEQ/L Potassium Level 3.9 MEQ/L Chloride Level 105 MEQ/L Carbon Dioxide Level 27.5 MEQ/L Anion Gap 8 MEQ/L Estimat Glomerular Filtration Rate 54 ML/MIN Total Creatine Kinase 47 U/L Troponin I LESS THAN 0.02 NG/ML LESS THAN 0.02 NG/ML B-Type Natriuretic Peptide 5 PG/ML Lipase 128 U/L [facility] Medical Decision Making Medical Screen Exam Complete: Yes Emergency Medical Condition: Yes Medical Record Reviewed: Yes Interpretation(s) Last Impressions Gall Bladder Ultrasound 03/09/17 0025 Signed Impressions: Service Date/Time: Thursday, March 09, 2017 00:53 - CONCLUSION: 1. No acute findings. Contracted gallbladder. No biliary ductal dilatation. No free fluid. Bernardo Alejandro MD Chest X-Ray 03/08/17 2764 Signed Impressions: Service Date/Time: Wednesday, March 08, 2017 23:14 - CONCLUSION: 1. No acute findings. Minimal basilar atelectasis. Bernardo Alejandro MD Differential Diagnosis Acute coronary syndrome, versus pancreatitis, versus biliary colic, versus gastritis, versus peptic ulcer disease, versus acid reflux Narrative Course During the course of the patients emergency department visit, the patients history, examination, and differential diagnosis were reviewed with the patient. The patient had IV access obtained and blood work sent for analysis. The patient was placed on a environmental monitoring technician with oximetry and blood pressure monitoring. An ECG was done on arrival. The patient's ECG reveals a sinus rhythm heart rate of 67, no acute ST segment elevation or depression, QRS duration is 92 ms, QTC 381 ms. The patient's electronic medical record was reviewed. The patient does have a history of having a negative treadmill stress test at another facility. He also stated this facility and was evaluated by the informatics nurse and the chest pain center with serial cardiac enzymes that were negative 3. The patient reports that he is uninsured, and therefore has not ever had endoscopy or colonoscopy done previously. Given the midepigastric abdominal discomfort on palpation and symptoms of exacerbation with eating, an ultrasound of the gallbladder will be done. The patient was initially provided aspirin 324 mg by mouth 1. The patient was given nitroglycerin sublingual one by mouth times one. The patient was given famotidine 20 mg IV. The patients laboratory studies were reviewed and remarkable for a white count of 8.8, hemoglobin 16.8, platelets 233 with a normal differential, CMP is remarkable for creatinine 1.37, GFR 54, CPK 47, troponin I less than 0.02, BNP is 5, lipase 128, PT PTT within normal limits. Radiology studies were reviewed and remarkable for a chest x-ray that shows no acute cardiopulmonary disease. An ultrasound was done to evaluate for possible gall bladder disease as a cause of the patient's symptoms. Ultrasound reveals no acute findings, contracted gallbladder. No biliary ductal dilatation. No free fluid or inflammation. The patient was offered admission again to the chest pain center, however he prefers to be discharged home and follow-up with primary care doctor as well as start on an indigestion medicine as his symptoms seem most consistent with this. He was agreeable with the plan to proceed with a repeat troponin. The patient's repeat troponin was less than 0.02. The patient will be discharged home with famotidine. The patient is resting comfortably and feels better, is alert and in no distress. The patients results and examination findings were discussed with the patient. The repeat examination is unremarkable and benign. The history, exam, diagnostic testing, and current condition do not suggest any significant pathology to warrant further testing, continued ED treatment, admission, or surgical evaluation at this point. The vital signs have been stable. The patient does not have uncontrollable pain, intractable vomiting, or other significant symptoms. The patient's condition is stable and appropriate for discharge. The patient will pursue further outpatient evaluation with a primary care physician or other designated or consulting physician as indicated in the discharge instructions. The patient expressed understanding and was agreeable with this plan. Diagnosis Primary Impression: Atypical chest pain Additional Impression: Dyspepsia Referrals: Primary Care Physician 2 days Patient Instructions: Chest Pain (ED), Gastroesophageal Reflux Disease (ED), General Instructions Med/Other Pt SpecificInfo: Prescription(s) given Scripts Famotidine (Famotidine) 20 Mg Tab 20 MG PO BID, #60 TAB 0 Refills Prov: Gloria Benton MD 03/09/17 Disposition: 01 DISCHARGE HOME Condition: Stable Gloria Benton MD Mar 08, 2017 23:09
[2017-03-08] MEDS ORDERED: NITROGLYCERIN 0.4 MG SL 25 TABS/BTL SL ONE (23:15)
[2017-03-08] MEDS ORDERED: SODIUM CHLORIDE 0.9% FLUSH 10 ML FLUSH IVF PRN (23:15)
[2017-03-08] MEDS ORDERED: ASPIRIN 81 MG CHEW TAB PO ONE (23:15)
[2017-03-08 23:23] LABS: AUTOMATED NEUTROPHIL # 4.9 TH/MM3 (1.8-7.7); BASOPHIL # 0.1 TH/MM3 (0-0.2); BASOPHIL % 1.3 % (0.0-2.0); EOSINOPHIL # 0.2 TH/MM3 (0-0.4); EOSINOPHIL % 2.2 % (0.0-4.0); HEMATOCRIT 49.8 % (39.0-51.0); HEMO FLAGS DIFF FINAL; LYMPH % 32.5 % (9.0-44.0); LYMPHOCYTE # 2.8 TH/MM3 (1.0-4.8); MEAN CELL VOLUME 91.3 FL (80.0-100.0); MEAN CORPUSCULAR HEMOGLOBIN 30.7 PG (27.0-34.0); MEAN CORPUSCULAR HGB CONC 33.6 % (32.0-36.0); MONO % 8.4 % (0.0-8.0); NEUT % 55.6 % (16.0-70.0); PLATELET COUNT 233 TH/MM3 (150-450); RED BLOOD COUNT 5.46 MIL/MM3 (4.50-5.90); RED CELL DISTRIBUTION WIDTH 13.1 % (11.6-17.2); WHITE BLOOD COUNT 8.8 TH/MM3 (4.0-11.0)
[2017-03-08 23:32] LABS: APTT (PATIENT) 26.4 SEC (24.3-30.1); PROTHROMBIN TIME - PATIENT 10.5 SEC (9.8-11.6)
[2017-03-08 23:38] VITALS: BP 154/91; PULSE 64; RESP 16; TEMP 98.1; O2SAT 97
[2017-03-08 23:45] LABS: ALT (GPT) 35 U/L (12-78); ANION GAP 8 MEQ/L (5-15); AST (GOT) 19 U/L (15-37); BICARBONATE 27.5 MEQ/L (21.0-32.0); BLOOD UREA NITROGEN 16 MG/DL (7-18); CHLORIDE 105 MEQ/L (98-107); GLOMERULAR FILTRATION RATE 54 ML/MIN (>89); MAGNESIUM 2.5 MG/DL (1.5-2.5); POTASSIUM 3.9 MEQ/L (3.5-5.1); SODIUM (NA) 140 MEQ/L (136-145)
--- NOTE | 2017-03-08 23:47 | RADRPT ---
EXAM DATE/TIME: 03/08/2017 23:14 [facility] COMPARISON: No previous studies available for comparison. INDICATIONS : Midsternal Chest pain. MEDICAL HISTORY : None. SURGICAL HISTORY : None. ENCOUNTER: Initial ACUITY: 1 week PAIN SCORE: 7/10 LOCATION: Bilateral chest FINDINGS: A single view of the chest demonstrates the lungs to be symmetrically aerated without evidence of mas s, infiltrate or effusion. Minimal basilar atelectasis. The cardiomediastinal contours are unremarka ble. Osseous structures are intact. CONCLUSION: 1. No acute findings. Minimal basilar atelectasis. Bernardo Alejandro MD on March 08, 2017 at 23:45 Board Certified Radiologist. This report was verified electronically.
[2017-03-08 23:50] LABS: ALKALINE PHOSPHATASE 91 U/L (45-117); TOTAL BILIRUBIN ADULT 0.6 MG/DL (0.2-1.0)
[2017-03-08 23:51] LABS: CREATINE KINASE 47 U/L (39-308)
[2017-03-09] MEDS ORDERED: FAMOTIDINE INJ 20 MG in SODIUM CHLORIDE 0.9% INJ 98 ML IV SCH (00:30)
--- NOTE | 2017-03-09 01:36 | RADRPT ---
EXAM DATE/TIME: 03/09/2017 00:53 [facility] COMPARISON: No previous studies available for comparison. INDICATIONS : Right upper quadrant pain. MEDICAL HISTORY : Asthma. Seasonal bronchitis. Syncope. Epigastric pain. SURGICAL HISTORY : Tonsillectomy. ENCOUNTER: Initial ACUITY: 2 days PAIN SCORE: 6/10 LOCATION: Right upper quadrant MEASUREMENTS: LIVER: 16.0 cm length COMMON DUCT: 3 mm RIGHT KIDNEY: 11.4 x 4.6 x 4.1 cm FINDINGS: LIVER: Normal echotexture without focal lesion or ductal dilatation. COMMON DUCT: No intraluminal mass or stone visualized. GALLBLADDER: Contains no stones, demonstrates no wall thickening or pericholecystic fluid. PANCREAS: The visualized portions are within normal limits. RIGHT KIDNEY: No evidence of hydronephrosis, stone, or mass. CONCLUSION: 1. No acute findings. Contracted gallbladder. No biliary ductal dilatation. No free fluid. Bernardo Alejandro MD on March 09, 2017 at 1:34 Board Certified Radiologist. This report was verified electronically.
[2017-03-09] MEDS ORDERED: FAMO20TA2 PO (02:53)
[2017-03-09 03:18] VITALS: BP 113/71
--- NOTE | 2017-03-09 14:01 | EKG ---
Date Performed: 03/08/2017 Time Performed: 22:59:00 PTAGE: 56 years EKG: Sinus rhythm POSSIBLE RIGHT VENTRICULAR CONDUCTION DELAY BORDERLINE ECG Compared to prior tracing no significant change PREVIOUS TRACING : 11/28/2016 22.49 DOCTOR: Russell Hutchison Interpretating Date/Time 03/09/2017 13:59:40
== END 2017-03-09 03:42 | disposition home or self-care (01) ==
LOC: NEPE 22:49
DX: R07.89 Other chest pain (principal); R10.13 Epigastric pain; R94.31 Abnormal electrocardiogram [ECG] [EKG]
CPT/HCPCS: 71010; 76705; 80053; 82550; 83690; 83735; 83880; 84484; 85025; 85610; 85730; 93005; 99285

== ENCOUNTER 2017-10-11 20:44 | Emergency (ER) | payer SELFPAY ==
[~2017-10-11] VITALS: Ht 182.9 cm; Wt 100.0 kg
[~2017-10-11 20:44] MED LIST changes: +FAMO20TA2 PO
[2017-10-11 20:47] VITALS: BP 153/84; PULSE 85; RESP 18; TEMP 97.5; O2SAT 95
[2017-10-11] MEDS ORDERED: XANA1TAB2 PO (20:57)
[2017-10-11 21:01] VITALS: BP 146/91; PULSE 82; RESP 20; O2SAT 95
[2017-10-11 21:11] VITALS: BP_SYST 146; BP_SYST 153; BP_DIAS 72; BP_DIAS 84; PULSE 88; RESP 20; TEMP 98; O2SAT 98
[2017-10-11 21:12] VITALS: RESP 20
[2017-10-11] MEDS ORDERED: SODIUM CHLORIDE 0.9% FLUSH 10 ML FLUSH IVF PRN (21:15)
--- NOTE | 2017-10-11 21:28 | RADRPT ---
EXAM DATE/TIME: 10/11/2017 21:18 [facility] COMPARISON: CHEST SINGLE AP, March 08, 2017, 23:14. INDICATIONS : Chest pain MEDICAL HISTORY : Asthma. Seasonal bronchitis. Syncope. Epigastric pain SURGICAL HISTORY : Tonsillectomy. ENCOUNTER: Initial ACUITY: 1 day PAIN SCORE: 3/10 LOCATION: chest FINDINGS: PA and lateral views of the chest demonstrate the lungs to be symmetrically aerated without evidence of mass, infiltrate or effusion. The cardiomediastinal contours are unremarkable. Osseous structure s are intact. CONCLUSION: 1. No acute cardiopulmonary disease. Gamaliel Pope MD on October 11, 2017 at 21:24 Board Certified Radiologist. This report was verified electronically.
[2017-10-11 21:34] LABS: BASOPHIL # 0.1 TH/MM3 (0-0.2); BASOPHIL % 0.9 % (0.0-2.0); EOSINOPHIL # 0.3 TH/MM3 (0-0.4); EOSINOPHIL % 3.9 % (0.0-4.0); HEMATOCRIT 45.5 % (39.0-51.0); LYMPH % 32.1 % (9.0-44.0); LYMPHOCYTE # 2.9 TH/MM3 (1.0-4.8); MEAN CELL VOLUME 89.2 FL (80.0-100.0); MEAN CORPUSCULAR HEMOGLOBIN 31.3 PG (27.0-34.0); MEAN CORPUSCULAR HGB CONC 35.1 % (32.0-36.0); MEAN PLATELET VOLUME 10.3 FL (7.0-11.0); MONO % 7.1 % (0.0-8.0); MONOCYTE # 0.6 TH/MM3 (0-0.9); PLATELET COUNT 224 TH/MM3 (150-450); RED CELL DISTRIBUTION WIDTH 13.5 % (11.6-17.2)
[2017-10-11 21:36] LABS: ALT (GPT) 30 U/L (12-78)
[2017-10-11 21:46] LABS: ALKALINE PHOSPHATASE 82 U/L (45-117); AST (GOT) 34 U/L (15-37); BICARBONATE 23.3 MEQ/L (21.0-32.0); BLOOD UREA NITROGEN 15 MG/DL (7-18); CALCIUM 8.8 MG/DL (8.5-10.1); CHLORIDE 109 MEQ/L (98-107); CREATININE 1.35 MG/DL (0.60-1.30); GLOMERULAR FILTRATION RATE 54 ML/MIN (>89); GLUCOSE,RANDOM 125 MG/DL (74-106); MAGNESIUM 2.5 MG/DL (1.5-2.5); SODIUM (NA) 140 MEQ/L (136-145); TOTAL BILIRUBIN ADULT 0.5 MG/DL (0.2-1.0); TOTAL PROTEIN 7.1 GM/DL (6.4-8.2); TROPONIN I LESS THAN 0.02 NG/ML (0.02-0.05)
[2017-10-11] MEDS ORDERED: ONDANSETRON HCL 4 MG/2 ML VIAL IV PUSH ONE (22:00)
[2017-10-11] MEDS ORDERED: PANTOPRAZOLE SOD 40 MG DELAYED RELEASE TAB PO ONE (22:00)
--- NOTE | 2017-10-11 22:21 | PD ---
HPI Chief Complaint: Chest Pain Time Seen by Provider: 21:03 Travel History International Travel<30 days: No Contact w/Intl Traveler<30days: No Traveled to known affect area: No History of Present Illness HPI The patient is a 57 year old male who presents to the [facility] emergency department with a history of reportedly not sleeping well last night due to a burning sensation in the midepigastric area, nausea without vomiting, and 3 episodes of diarrhea. The patient reports that the stool was brown in color. He denies having any blood in his stool or black or tarry stools. The patient reports that he forgot to take his Protonix. He reports that he has a history of peptic ulcer disease. He reports that he takes this on an as-needed basis now. He considered taking the medication this morning, however he decided not to as he usually takes it at night. He reports that he is continued to have a burning sensation in his abdomen throughout the day. He reports that he was able to eat and drink normally today. He reports that he went to a movie and then began to have a left-sided upper back pain associated with a burning in his abdomen, therefore he decided to come to the emergency department for evaluation and treatment. He reports that the back pain has been a problem for the last few months. He reports that he is undergone imaging, rib manipulation by a chiropractic doctor, and is now also receiving acupuncture. He reports that the acupuncture has been helping. He denies having any diaphoresis or shortness of breath. He denies having any prior history of cardiac disease. He reports that he had a stress test last done in November 2016 which was reportedly normal. His primary care physician is Dr. Saenz. The patient reports that he has been having increased anxiety related to stress and several friends recently passing away. He reports that over the last week he has attended 2 funerals. On review of systems otherwise, the patient denies having any known recent fevers, cough or congestion, neck pain, urinary symptoms, or neurologic symptoms. [facility] Past Medical History Narrative Medical The patient's past medical history is significant for anxiety disorder, reactive airway when he gets bronchitis, peptic ulcer disease Asthma: Yes Anxiety: Yes Heart Rhythm Problems: No Cardiac Catheterization: No Cardiovascular Problems: Yes High Cholesterol: No Congestive Heart Failure: No Diabetes: No Diminished Hearing: No GERD: Yes Respiratory: Yes (SEASONAL BRONCHITIS) Immunizations Current: Yes Ulcer: Yes Tetanus Vaccination: < 5 Years Influenza Vaccination: No Past Surgical History Narrative Surgical The patient's past surgical history is significant for tonsillectomy, kidney procedure as a child Coronary Artery Bypass Graft: No Genitourinary Surgery: Yes ( A CHILD KIDNEY PROBLEMS) Tonsillectomy: Yes Family History Family Myocardial Infarction: Yes Social History Alcohol Use: Yes Tobacco Use: No Substance Use: No Allergies-Medications (Allergen,Severity, Reaction): Coded Allergies: No Known Allergies (Verified Adverse Reaction, Unknown, 10/11/17) Reported Meds & Prescriptions Reported Meds & Active Scripts Active Reported Xanax (Alprazolam) 1 Mg Tab 1 Mg PO Q6H PRN Review of Systems Except as stated in HPI: all other systems reviewed are Neg General / Constitutional: No: Fever Eyes: No: Visual changes HENT: No: Headaches Cardiovascular: Positive: Chest Pain or Discomfort (Left posterior thoracic pain), No: Diaphoresis, Dyspnea on exertion Respiratory: No: Shortness of Breath Gastrointestinal: Positive: Nausea, Diarrhea, Abdominal Pain, Changes in Bowel Habits, Indigestion, No: Vomiting, Hematemesis, Hematochezia, Loss of Appetite Genitourinary: No: Dysuria Musculoskeletal: No: Pain Skin: No Rash Neurologic: No: Weakness, Focal Abnormalities, Change in Mentation, Slurred Speech, Sensory Disturbance Psychiatric: No: Depression Endocrine: No: Polydipsia Hematologic/Lymphatic: No: Easy Bruising Physical Exam Narrative General: The patient is a well-developed well-nourished male in no acute distress. Head and Neck exam: Head is normocephalic atraumatic. Eyes: EOMI, pupils are equal round and reactive to light. Nose: Midline septum with pink mucous membranes Mouth: Dentition unremarkable. Moist mucus membranes. Posterior oropharynx is not erythematous. No tonsillar hypertrophy. Uvula midline. Airway patent. Neck: No palpable lymphadenopathy. No nuchal rigidity. No thyromegaly. Cardiovascular: Regular rate and rhythm without murmurs, gallops, or rubs. No pulse deficit to the extremities on simultaneous auscultation and palpation of his radial artery. Lungs: Clear to auscultation bilaterally. No wheezes, rhonchi, or rales. Abdomen: Soft, without tenderness to palpation in all 4 quadrants of the abdomen. No guarding, rebound, or rigidity. Normal bowel sounds are audible. No tenderness on palpation of McBurney's point. Negative Kinney sign. Extremities: No clubbing, cyanosis, or edema. 2+ pulses in all 4 extremities. No calf tenderness on palpation peer Back: No spinous process tenderness to palpation. No costovertebral angle tenderness to palpation. Neurologic Exam: Grossly nonfocal. Skin Exam: No rash noted. Intact skin that is warm and dry. Data Data Last Documented VS Vital Signs Date Time Temp Pulse Resp B/P (MAP) Pulse Ox O2 Delivery O2 Flow Rate FiO2 10/11/17 21:12 20 10/11/17 21:12 Room Air 10/11/17 21:11 98.0 88 98 Orders Orders Electrocardiogram (10/11/17 21:03) B-Type Natriuretic Peptide (10/11/17 21:03) Ckmb (Isoenzyme) Profile (10/11/17 21:03) Complete Blood Count With Diff (10/11/17 21:03) Comprehensive Metabolic Panel (10/11/17 21:03) Magnesium (Mg) (10/11/17 21:03) Prothrombin Time / Inr (Pt) (10/11/17 21:03) Act Partial Throm Time (Ptt) (10/11/17 21:03) Troponin I (10/11/17 21:03) Lipase (10/11/17 21:03) Ecg Monitoring (10/11/17 21:03) Bilateral Bp Monitoring (10/11/17 21:03) Iv Access Insert/Monitor (10/11/17 21:03) Oximetry (10/11/17 21:03) Oxygen Administration (10/11/17 21:03) Sodium Chloride 0.9% Flush (Ns Flush) (10/11/17 21:15) Chest, Pa & Lat (10/11/17 21:03) CKMB (10/11/17 21:10) CKMB% (10/11/17 21:10) Pantoprazole (Protonix) (10/11/17 22:00) Ondansetron Inj (Zofran Inj) (10/11/17 22:00) Labs Laboratory Tests Test 10/11/17 21:10 White Blood Count 9.0 TH/MM3 Red Blood Count 5.10 MIL/MM3 Hemoglobin 16.0 GM/DL Hematocrit 45.5 % Mean Corpuscular Volume 89.2 FL Mean Corpuscular Hemoglobin 31.3 PG Mean Corpuscular Hemoglobin Concent 35.1 % Red Cell Distribution Width 13.5 % Platelet Count 224 TH/MM3 Mean Platelet Volume 10.3 FL Neutrophils (%) (Auto) 56.0 % Lymphocytes (%) (Auto) 32.1 % Monocytes (%) (Auto) 7.1 % Eosinophils (%) (Auto) 3.9 % Basophils (%) (Auto) 0.9 % Neutrophils # (Auto) 5.0 TH/MM3 Lymphocytes # (Auto) 2.9 TH/MM3 Monocytes # (Auto) 0.6 TH/MM3 Eosinophils # (Auto) 0.3 TH/MM3 Basophils # (Auto) 0.1 TH/MM3 CBC Comment DIFF FINAL Differential Comment Prothrombin Time 10.0 SEC Prothromb Time International Ratio 1.0 RATIO Activated Partial Thromboplast Time 24.4 SEC Blood Urea Nitrogen 15 MG/DL Creatinine 1.35 MG/DL Random Glucose 125 MG/DL Total Protein 7.1 GM/DL Albumin 4.0 GM/DL Calcium Level 8.8 MG/DL Magnesium Level 2.5 MG/DL Alkaline Phosphatase 82 U/L Aspartate Amino Transf (AST/SGOT) 34 U/L Alanine Aminotransferase (ALT/SGPT) 30 U/L Total Bilirubin 0.5 MG/DL Sodium Level 140 MEQ/L Potassium Level 4.0 MEQ/L Chloride Level 109 MEQ/L Carbon Dioxide Level 23.3 MEQ/L Anion Gap 8 MEQ/L Estimat Glomerular Filtration Rate 54 ML/MIN Total Creatine Kinase 103 U/L Creatine Kinase MB 1.0 NG/ML Troponin I LESS THAN 0.02 NG/ML B-Type Natriuretic Peptide 13 PG/ML Lipase 106 U/L [facility] Medical Decision Making Medical Screen Exam Complete: Yes Emergency Medical Condition: Yes Medical Record Reviewed: Yes Interpretation(s) Last Impressions Chest X-Ray 10/11/172102 Signed Impressions: Service Date/Time: Wednesday, October 11, 2017 21:18 - CONCLUSION: 1. No acute cardiopulmonary disease. Gamaliel Pope MD Differential Diagnosis Acid reflux, versus recurrent peptic ulcer disease, versus acute coronary syndrome, versus pneumothorax, versus pleurisy, versus costochondritis, versus anxiety disorder Narrative Course During the course of the patient's emergency department visit, the patient's history, examination, and differential diagnosis were reviewed with the patient. The patient was placed on a teletypesetter monitor with oximetry and frequent blood pressure monitoring. The patient had IV access obtained and blood work sent for analysis. The patient had an EKG done on arrival. The patient's EKG reveals a sinus rhythm heart rate of 74, QRS duration is 102 ms, QTC [address] segment elevation is noted. T waves are inverted in V1. The patient was initially provided Protonix 40 mg p.o. 1, Zofran 4 mg IV 1 for nausea. The patient's laboratory studies were reviewed and remarkable for a CBC that is within normal limits, CMP is remarkable for chloride of 109, creatinine 1.35, glucose 125, cardiac enzymes within normal limits, BNP is 30, lipase 106 ruling out pancreatitis, PT PTT within normal limits. A chest x-ray that shows no acute cardiopulmonary disease. Radiology studies were reviewed and remarkable for a chest x-ray that shows no acute cardiopulmonary disease. The patient was offered admission to the chest pain center for rule out serial cardiac enzyme protocol, however the patient reports feeling improved. The patient reports that he recently had a stress test done last year that was abnormal couple. He prefers to follow-up with his primary care physician as an outpatient. The patient is resting comfortably and feels better, is alert and in no distress. The patient's results and examination findings were discussed with the patient. The repeat examination is unremarkable and benign. The history, exam, diagnostic testing, and current condition do not suggest any significant pathology to warrant further testing, continued ED treatment, admission, or surgical evaluation at this point. The vital signs have been stable. The patient does not have uncontrollable pain, intractable vomiting, or other significant symptoms. The patient's condition is stable and appropriate for discharge. The patient will pursue further outpatient evaluation with a primary care physician or other designated or consulting physician as indicated in the discharge instructions. The patient expressed understanding and was agreeable with this plan. Diagnosis Primary Impression: Abdominal pain Qualified Codes: R10.13 - Epigastric pain Additional Impression: Thoracic back pain Qualified Codes: M54.6 - Pain in thoracic spine; G89.29 - Other chronic pain Referrals: Primary Care Physician 2 days Patient Instructions: Abdominal Pain (ED), General Instructions Additional Instructions: The patient is encouraged to continue the Protonix on a regular basis. Med/Other Pt SpecificInfo: No Change to Meds Disposition: 01 DISCHARGE HOME Condition: Stable Gloria Benton MD Oct 11, 2017 22:21
--- NOTE | 2017-10-12 21:10 | EKG ---
Date Performed: 10/11/2017 Time Performed: 21:03:29 PTAGE: 57 years EKG: Sinus rhythm LOW QRS VOLTAGE IN PRECORDIAL LEADS POSSIBLE RIGHT VENTRICULAR CONDUCTION DELAY BORDERLINE ECG PREVIOUS TRACING : 03/08/2017 22.59 Since the previous tracing, no significant change noted DOCTOR: Kameron Montaño Interpretating Date/Time 10/12/2017 21:08:50
== END 2017-10-12 00:22 | disposition home or self-care (01) ==
LOC: NEPC 20:44
DX: R10.13 Epigastric pain (principal); M54.6 Pain in thoracic spine; G89.29 Other chronic pain; R94.31 Abnormal electrocardiogram [ECG] [EKG]; F41.9 Anxiety disorder, unspecified; J45.909 Unspecified asthma, uncomplicated; K21.9 Gastro-esophageal reflux disease without esophagitis; Z87.11 Personal history of peptic ulcer disease
CPT/HCPCS: 71046; 80053; 82550; 82552; 83690; 83735; 83880; 84484; 85025; 85610; 85730; 93005; 96374; 99285; J2405